=== PATIENT | female | born 1990 | race Caucasian/White ===

== ENCOUNTER 2021-05-06 16:59 | Emergency (ER) | payer SELFPAY ==
[~2021-05-06] VITALS: Ht 167.6 cm; Wt 76.7 kg
[2021-05-06 17:10] VITALS: BP 130/71
--- NOTE | 2021-05-06 17:24 | PHYS DOC ---
Past Medical History Past Surgical History: Tonsillectomy General Adult EDM: Chief Complaint: ABDOMINAL PAIN HPI: HPI: Patient is a 30-year-old female who presents to the emergency department for suprapubic pain with urinary frequency and urgency. Patient is also reporting nausea. Patient denies dysuria, fevers, vomiting, diarrhea, vaginal bleeding, vaginal discharge, flank pain. Last menstrual period was April 07. Review of Systems: Review of Systems: Constitutional: See HPI GI: See HPI : See HPI Musculoskeletal: See HPI Heart Score: C/O Chest Pain: N/A Risk Factors: Risk Factors: DM, Current or recent (<one month) smoker, HTN, HLP, family history of CAD, obesity. Risk Scores: Score 0 - 3: 2.5% MACE over next 6 weeks - Discharge Home Score 4 - 6: 20.3% MACE over next 6 weeks - Admit for Clinical Observation Score 7 - 10: 72.7% MACE over next 6 weeks - Early Invasive Strategies Allergies: Allergies: Allergies Coded Allergies Type Severity Reaction Last Updated Verified morphine Allergy Intermediate 05/06/21 Yes codeine Adverse Reaction Intermediate NAUSEA, VOMITING 05/06/21 Yes Physical Exam: PE: Constitutional: Well developed, well nourished, no acute distress, non-toxic appearance. [] HENT: Normocephalic, atraumatic, bilateral external ears normal, oropharynx moist, no oral exudates, nose normal. [] Eyes: PERRL, EOMI, conjunctiva normal, no discharge. [] Neck: Normal range of motion, no stridor Cardiovascular:Heart rate regular rhythm, no murmur [] Lungs & Thorax: Bilateral breath sounds clear to auscultation [] Abdomen: Bowel sounds normal, soft, suprapubic tenderness with palpation, no rigidity, no rebound tenderness, negative Desouza sign, no guarding, no masses, no pulsatile masses. [] Skin: Warm, dry, no erythema, no rash. [] Back: No tenderness, no CVA tenderness. [] Extremities: No tenderness, no cyanosis, no clubbing, ROM intact, no edema. [] Neurologic: Alert and oriented X 3, normal motor function, normal sensory function, no focal deficits noted. [] Psychologic: Affect normal, judgement normal, mood normal. [] Current Patient Data: Labs: Laboratory Tests Test 05/06/21 17:07 05/06/21 17:19 Urine Collection Type Unknown Urine Color Yellow Urine Clarity Clear Urine pH 6.0 Urine Specific [place] 1.025 Urine Protein Negative mg/dL Urine Glucose (UA) Negative mg/dL Urine Ketones (Stick) Trace mg/dL Urine Blood Small Urine Nitrite Negative Urine Bilirubin Negative Urine Urobilinogen Dipstick 1.0 mg/dL Urine Leukocyte Esterase Negative Urine RBC 3-5 /HPF Urine WBC Occ /HPF Urine Squamous Epithelial Cells Mod /LPF Urine Bacteria Few /HPF Urine Mucus Mod /LPF Bedside Urine HCG, Qualitative Hcg negative Vital Signs: Vital Signs Date Time Temp Pulse Resp B/P (MAP) Pulse Ox O2 Delivery O2 Flow Rate FiO2 05/06/21 17:10 99.2 94 18 130/71 (90) 98 Room Air 99.2 EKG: EKG: [] Radiology/Procedures: Radiology/Procedures: [] Course & Med Decision Making: Course & Med Decision Making Pertinent Labs and Imaging studies reviewed. (See chart for details) Patient presents to the emergency department for suprapubic tenderness, urinary frequency and urgency. Denies flank pain, fevers. Patient was seen at the health department 2 weeks ago and was treated for a urinary tract infection with an antibiotic. Patient is unsure of what antibiotic she was discharged home with. Patient's urinalysis did show a urinary tract infection. This will be treated with antibiotic. Advised to follow-up with her primary care provider. I discussed with patient all findings and diagnostic testing as well as the need to follow-up with PCP for further evaluation and treatment or return to the ER if any new or worsening symptoms. Strict return precautions were also discussed at length. Patient voiced understanding and agreement with the plan. Patient is hemodynamically stable at the time of disposition. Dragon Disclaimer: [facility] Disclaimer: This electronic medical record was generated, in whole or in part, using a voice recognition dictation system. Departure Departure Impression: Primary Impression: Urinary tract infection Qualified Codes: N30.01 - Acute cystitis with hematuria Disposition: HOME / SELF CARE / HOMELESS Condition: GOOD Patient Instructions: Urinary Tract Infection Additional Instructions: You were seen in the emergency department today for suprapubic pain with urinary frequency and urgency. Your urinalysis showed a urinary tract infection. You will be treated with an antibiotic. Please start and finish it completely. Increase your fluids. Avoid any bladder irritants like caffeine, sugary beverages or alcohol. Follow-up with your primary care provider in a couple of days regarding your ER visit. Return to the emergency department if you develop worsening of your pain, back pain, intractable nausea or vomiting, high fevers refractory to treatment or any new or worsening concerns. Scripts Cephalexin (KEFLEX) 500 Mg Capsule 1 CAP PO BID for 7 Days, #14 CAP 0 Refills Prov: MAGEN MONTGOMERY APRN 05/06/21 MAGEN MONTGOMERY APRN May 06, 2021 17:24
[2021-05-06 17:28] LABS: BILIRUBIN,URINE NEGATIVE (NEG); CLARITY,URINE CLEAR; COLOR,URINE YELLOW; NITRITE,URINE NEGATIVE (NEG); PROTEIN,URINE NEGATIVE (NEG-TRACE)
[2021-05-06 17:33] LABS: BACTERIA,URINE FEW /HPF (0-FEW); WBC,URINE OCC /HPF (0-4)
[2021-05-06] MEDS ORDERED: CEPH500C PO (17:43)
== END 2021-05-06 18:07 | disposition home or self-care (01) ==
LOC: ER 16:59
DX: N30.01 Acute cystitis with hematuria (principal); Z88.5 Allergy status to narcotic agent
CPT/HCPCS: 81001; 81025; 99283